=== PATIENT | male | born 1970 | race Caucasian/White ===

== ENCOUNTER 2023-01-14 08:02 | Emergency (ER) | payer BC, SELFPAY ==
[2023-01-14] VITALS (9 sets, daily range): BP systolic 105–161; BP diastolic 67–86; PULSE 68–79; RESP 13–20; TEMP 36.3; O2SAT 96–99; BMI 33.1
--- NOTE | 2023-01-14 08:21 | PC.NURSE ---
woke up aorund 0500 had some coffee and began having epigastric/chest pain into mid back. began vomiting a few times. pain is now gone, per pt, as well as nausea. Has not had any episodes like this before or any cardiac hx besides HTN
--- NOTE | 2023-01-14 08:24 | ECG_ITS ---
[facility] Test Date: 2023-01-14 Pat Name: MAYURI FENTON Department: Room: - Gender: Male [employer] Operator: : 1970 Requested By: Order Number: [id number] Reading MD: NICOLA ESTRELLA Measurements Intervals [place] Rate: 72 P: 23 MA: 164 QRS: 54 QRSD: 88 T: 50 QT: 354 QTc: 378 Interpretive Statements 1100 Sinus rhythm 9110 normal ECG No previous ECG available for comparison Electronically Signed On 01-15-2023 7:52:31 EDT by NICOLA ESTRELLA
--- NOTE | 2023-01-14 08:24 | XR_ITS ---
The [address] [address] Patient Name: MAYURI FENTON MRN: [id number] date: 1970 Sex: M Assigned Patient Location: ER Current Patient Location: ER Accession/Order Number: [id number] Exam Date: 01/14/2023 08:35 Report Date: 01/14/2023 08:54 At the request of: CAROL ANN BENAVIDEZ Procedure: XR chest 1V EXAM: XR chest 1V 01/14/2023 COMPARISON STUDY: PA and lateral chest 06/12/2012 FINDINGS: Upright AP chest image was obtained. Retrocardiac regions are difficult to accurately evaluate due to body habitus and underpenetration. HISTORY: pain IMPRESSION: 1. The cardiomediastinal contours are stable and within normal limits. 2. No dense consolidation, effusion, failure, pneumothorax or acute osseous change suspected based on AP image alone. Electronically authenticated by: ALLA MATSON Date: 01/14/2023 08:54
--- NOTE | 2023-01-14 08:25 | ED_ITS ---
HPI - Chest Pain General Chief Complaint: Chest Pain Stated Complaint: ABDOMINAL PAIN Time Seen by Provider: 01/14/23 08:16 Source: patient Mode of arrival: walk-in Limitations: no limitations History of Present Illness HPI narrative: patient here is his for evaluation of pain in his epigastric area. It woke up this morning he had A cough he was resting at the time that he had discomfort in his epigastric area that radiated into his back. He got nauseated and vomited once or twice. He did take a Motrin but did vomit that up as well. He then started laying on his side and the pain went away on its own. He's not had previous cardiovascular disease. He does have hypertension and prediabetes. He's never had a cardiac stress test or echocardiogram. He lost a lot of weight previously but he remains very physically active in the wrist but a little bit more weight back on. He does not have any radiation of the discomfort to the upper neck chest or arm area. He has no shortness of breath with this. He has no history of gallbladder disease or gastric ulcers. He does have a local count includes the [facility] physician at the clinic in [place]. Does not have any discomfort at this time. Is not known to have elevation of his cholesterol. Related Data Home Medications Medication Instructions Recorded Confirmed lisinopril 10 mg tablet 10 mg PO DAILY 01/14/23 01/14/23 metformin 500 mg tablet 500 mg PO BID 01/14/23 01/14/23 Allergies Allergy/AdvReac Type Severity Reaction Status Date / Time No Known Drug Allergies Allergy Verified 01/14/23 08:06 [facility] Social History Smoking status: Current every day smoker Exam Constitutional Vital Signs - 24 hr 01/14/23 08:06 01/14/23 08:19 Temperature 97.4 F L Pulse Rate [Monitor] 76 Respiratory Rate 18 16 Blood Pressure [Left Arm] 161/85 H Pulse Oximetry 96 97 Oxygen Delivery Method Room Air Room Air Documenting provider has reviewed patient's vital signs: yes Common normals: no apparent distress and healthy appearing Exam limitations: no altered mental status Respiratory Common normals: normal respiratory effort, no use of accessory muscles and clear to auscultation bilaterally Cardio Common normals: no JVD, regular rate, regular rhythm, no clicks and no murmurs GI Common normals: Normal to inspection, nondistended, normoactive bowel sounds present Other: no pain in the epigastric area to palpation. Hansen sign negative. No splenomegaly. No abdominal distention. Lower xiphoid process and sternum are nontender to palpation in the soft tissue surrounding the sternum Extremity Common normals: normal to inspection and no pedal edema Course Vital Signs Vital signs: Vital Signs Temperature 97.4 F L 01/14/23 08:06 Pulse Rate 75 01/14/23 08:06 Respiratory Rate 18 01/14/23 08:06 Blood Pressure 161/85 H 01/14/23 08:06 Pulse Oximetry 96 01/14/23 08:06 Oxygen Delivery Method Room Air 01/14/23 08:06 Temperature 97.4 F L 01/14/23 08:06 Pulse Rate 71 01/14/23 09:15 Respiratory Rate 13 01/14/23 09:15 Blood Pressure 117/77 01/14/23 09:30 Pulse Oximetry 98 01/14/23 09:15 Oxygen Delivery Method Room Air 01/14/23 08:19 MDM - Chest Pain MDM Narrative Medical decision making narrative: this patient states he stopped drinking all alcoholic beverages three years ago. His liver function tests are elevated and his lipase is upper limits of normal. His cardiac workup was unremarkable and he has a low index of suspicion based on risk factors. Nonetheless I will want him to follow up with his primary care doctor and will be given a copy of his lab tests to pursue these liver function abnormalities as an outpatient. He's not had any recurrent discomfort since he's been here. Lab Data Labs: Lab Results 01/14/23 Range/Units 08:20 WBC 9.9 (4.0-11.0) 10^3/uL RBC 4.61 L (4.70-6.10) 10^6/uL Hgb 15.1 (14.0-18.0) g/dL Hct 43.5 (42.0-54.0) % MCV 94.4 H (80.0-94.0) fL MCH 32.8 (25.9-34.0) pg MCHC 34.7 (29.9-35.2) g/dL RDW 13.0 (11.0-15.0) % Plt Count 199 (150-450) 10^3/uL MPV 9.1 L (9.5-13.5) fL Neut % (Auto) 76.3 H (43.0-75.0) % Lymph % (Auto) 13.9 L (20.5-60.0) % [place] % (Auto) 8.5 (1.7-12.0) % Eos % (Auto) 0.7 L (0.9-7.0) % Baso % (Auto) 0.3 (0.2-2.0) % Neut # (Auto) 7.6 H (1.4-6.5) 10^3/uL Lymph # (Auto) 1.4 (1.2-3.8) 10^3/uL [place] # (Auto) 0.8 (0.3-0.8) 10^3/uL Eos # (Auto) 0.1 (0.0-0.7) 10^3/uL Baso # (Auto) 0.0 (0.0-0.1) 10^3/uL Abs Immat Gran (auto) 0.03 (0.00-0.03) 10^3/uL Imm/Tot Granulo (auto) 0.3 (0.0-0.5) % D-Dimer 0.45 (<=0.59) mg/L FEU Sodium 140 (136-145) mmol/L Potassium 4.7 (3.5-5.1) mmol/L Chloride 103 (98-107) mmol/L Carbon Dioxide 31.8 (21.0-32.0) mmol/L Anion Gap 9.9 BUN 16.0 (7.0-18.0) mg/dL Creatinine 0.82 (0.70-1.30) mg/dL Est GFR ( Amer) >60 (>=60) Est GFR (Non-Af Amer) >60 (>=60) BUN/Creatinine Ratio 19.5 Glucose 141 H (74-106) mg/dL Calcium 8.9 (8.5-10.1) mg/dL Total Bilirubin 0.8 (0.2-1.0) mg/dL AST 149 H (15-37) U/L ALT 165 H (16-63) U/L Alkaline Phosphatase 81 (46-116) U/L Troponin I High Sens <4.0 L (4.0-76.1) pg/mL Total Protein 7.4 (6.4-8.2) g/dL Albumin 4.0 (3.4-5.0) g/dL Globulin 3.4 g/dL Albumin/Globulin Ratio 1.2 Lipase 334.0 (73.0-393.0) U/L ECG Data Attestation: I personally reviewed and interpreted this ECG as follows: (EKG is normal sinus rhythm with no ST segment elevation, arrhythmia or gross abnormalities.) Discharge Plan Discharge Chief Complaint: Chest Pain Clinical Impression: Acute epigastric pain Patient Disposition: Home, Self-Care Time of Disposition Decision: 09:14 Prescriptions / Home Meds: No Action lisinopril 10 mg tablet 10 mg PO DAILY metformin 500 mg tablet 500 mg PO BID Instructions: Epigastric Pain (ED) Stand Alone Forms: Portal Instructions Referrals: Physician,Non-Staff, MD [Primary Care Provider] - 1 week Discharge Date/Time: 01/14/23 09:40
[2023-01-14 08:38] LABS: Basophils Percent Auto 0.3 % (0.2-2.0); Eosinophils Absolute Auto 0.1 10^3/uL (0.0-0.7); Eosinophils Percent Auto 0.7 % (0.9-7.0); Hematocrit 43.5 % (42.0-54.0); Hemoglobin 15.1 g/dL (14.0-18.0); Immature Granulocytes Abs Auto 0.03 10^3/uL (0.00-0.03); Immature Granulocytes Pct Auto 0.3 % (0.0-0.5); Lymphocytes Absolute Auto 1.4 10^3/uL (1.2-3.8); Lymphocytes Percent Auto 13.9 % (20.5-60.0); Mean Corpuscular HGB Conc 34.7 g/dL (29.9-35.2); Mean Corpuscular Hemoglobin 32.8 pg (25.9-34.0); Mean Corpuscular Volume 94.4 fL (80.0-94.0); Mean Platelet Volume 9.1 fL (9.5-13.5); Monocytes Absolute Auto 0.8 10^3/uL (0.3-0.8); Monocytes Percent Auto 8.5 % (1.7-12.0); Neutrophils Absolute Auto 7.6 10^3/uL (1.4-6.5); Neutrophils Percent Auto 76.3 % (43.0-75.0); Platelet Count 199 10^3/uL (150-450); Red Blood Count 4.61 10^6/uL (4.70-6.10); White Blood Count 9.9 10^3/uL (4.0-11.0)
[2023-01-14] MEDS: ASPIRIN 81 MG TAB.CHEW PO (08:43)
[2023-01-14 08:47] LABS: D Dimer 0.45 mg/L FEU (<=0.59)
[2023-01-14 08:48] LABS: Alanine Aminotransferase 165 U/L (16-63); Albumin Globulin Ratio 1.2; Alkaline Phosphatase 81 U/L (46-116); Anion Gap 9.9; Aspartate Amino Transferase 149 U/L (15-37); BUN Creatinine Ratio 19.5; Bilirubin Total 0.8 mg/dL (0.2-1.0); Calcium 8.9 mg/dL (8.5-10.1); Carbon Dioxide 31.8 mmol/L (21.0-32.0); Chloride 103 mmol/L (98-107); Estimated GFR (African America >60 (>=60); Estimated GFR (Non-African Ame >60 (>=60); Globulin 3.4 g/dL; Glucose 141 mg/dL (74-106); Potassium 4.7 mmol/L (3.5-5.1); Sodium 140 mmol/L (136-145); Total Protein 7.4 g/dL (6.4-8.2); Troponin I High Sensitivity <4.0 pg/mL (4.0-76.1)
== END 2023-01-14 09:40 | disposition home or self-care (01) ==
PROVIDERS: Emergency Provider Emergency Medicine Emergency Medical Services
DX: R10.13 Epigastric pain (principal); R11.2 Nausea with vomiting, unspecified; I10 Essential (primary) hypertension; R73.03 Prediabetes; F17.210 Nicotine dependence, cigarettes, uncomplicated
CPT/HCPCS: 36415; 71045; 80053; 83690; 84484; 85025; 85378; 93005; 99285